=== PATIENT | male | born 1980 ===

== ENCOUNTER 2017-11-03 08:35 | Emergency (ER) | payer MEDICAID, OTHER ==
--- NOTE | 2017-11-03 09:24 | C.PDOC ---
History Of Present Illness 36 year old male patient presents to the ER with c/o frontal headache, ear pain , throat pain and tender lymph nodes for x3 days. Patient also reports of a subjective fever for x1 day. He states he took Tylenol with minimal relief but the symptoms came back again. Patient denies cough, abdominal pain, neck stiffness, blurry vision and photophobia. HPI: Influenza Time Seen by Provider: 11/03/17 08:49 Chief Complaint: Flu-like Symptoms History Per: Patient Exam Limitations: no limitations Onset/Duration Of Symptoms: Days (x3) Past Medical History Reviewed: Historical Data, Nursing Documentation, Vital Signs Vital Signs: Last Vital Signs Temp 98.9 F 11/03/17 08:40 Pulse 96 H 11/03/17 08:40 Resp 20 11/03/17 08:40 BP 142/97 H 11/03/17 08:40 Pulse Ox 97 11/03/17 08:40 Family History: States: Unknown Family Hx - Social History Hx Alcohol Use: Yes Hx Substance Use: No - Immunization History Hx Tetanus Toxoid Vaccination: No Hx Influenza Vaccination: Yes (12/2014) Hx Pneumococcal Vaccination: No Review Of Systems Constitutional: Positive for: Fever (subjective) Eyes: Negative for: Vision Change (blurry vision), Other (photophobia) ENT: Positive for: Ear Pain, Throat Pain, Other (tender lymph nodes) Respiratory: Negative for: Cough Gastrointestinal: Negative for: Abdominal Pain Musculoskeletal: Negative for: Neck Pain (stiffness) Neurological: Positive for: Headache (frontal ) Physical Exam - Physical Exam Appears: Well, Non-toxic, No Acute Distress Skin: Warm, Dry Head: Atraumatic, Normacephalic Eye(s): bilateral: PERRL, EOMI Ear(s): Bilateral: Normal Nose: Normal Oral Mucosa: Moist Throat: Erythema, Exudate, Other (enlarged tonsils ) Neck: No Paracervical Tenderness, Supple, Other (no nuchal rigidity) Lymphatic: Adenopathy (tender bilateral submandibular nodes) Chest: No Tenderness Cardiovascular: Rhythm Regular, No Murmur Respiratory: Normal Breath Sounds, No Rales, No Rhonchi, No Wheezing Gastrointestinal/Abdominal: Soft, No Tenderness Back: No CVA Tenderness, No Vertebral Tenderness, No Decreased ROM, Paraspinal Tenderness (mild b/l lumbar) Extremity: Normal ROM (x4) Neurological/Psych: Oriented x3, Normal Speech, Normal Cognition Medical Decision Making Medical Decision Making: Impression: frontal headache with ear pain, throat pain, tender lymph nodes and subjective fever. Plans: -- ibuprofen -- rapid strep throat test 1050 Reassess: Patient is resting comfortably. headache decreased. will give rx for amox due to exudates. - ECG O2 Sat by Pulse Oximetry: 97 (RA) Pulse Ox Interpretation: Normal Disposition Counseled Patient/Family Regarding: Studies Performed, Diagnosis, Need For Followup, Rx Given - Disposition Referrals: Shaik Carnes MD [Staff Provider] - Disposition: HOME/ ROUTINE Disposition Time: 10:55 Condition: IMPROVED Additional Instructions: Take Tylenol or MOtrin for pain; take antibiotics as prescribed until completed. Gargle with warm salty water several times a day. Follow up with Dr Montalvo in 2-3 days. Prescriptions: Amoxicillin [Amoxil 500 mg Cap] 500 mg PO BID #20 cap Ibuprofen [Motrin] 600 mg PO TID #30 tab Instructions: Sore Throat, Adult (DC) Forms: [employer] (Cameroonian), General Discharge Instructions - Clinical Impression Clinical Impression: Pharyngitis - PA / CARAMEL MAKER / Resident Statement / has reviewed & agrees with the documentation as recorded. - Scribe Statement The provider has reviewed the documentation as recorded by the Wilberto Sandoval Do All medical record entries made by the Scribe were at my direction and personally dictated by me. I have reviewed the chart and agree that the record accurately reflects my personal performance of the history, physical exam, medical decision making, and the department course for this patient. I have also personally directed, reviewed, and agree with the discharge instructions and disposition.
[2017-11-03 09:58] VITALS: BP 134/87; PULSE 73; RESP 18; TEMP 98.2
[2017-11-03 10:54] VITALS: O2SAT 97
== END 2017-11-03 11:09 | disposition home or self-care (01) ==
LOC: C.ER 08:35
DX: J02.9 Acute pharyngitis, unspecified (principal)

== ENCOUNTER 2018-05-31 19:09 | Emergency (ER) | payer SELFPAY ==
[2018-05-31 19:42] VITALS: RESP 18
[2018-05-31] MEDS ORDERED: Sodium Chloride 0.9% 1,000 ML IV ONE (19:47)
--- NOTE | 2018-05-31 20:09 | C.PDOC ---
History Of Present Illness 37 year old male with no significant PMHx presents with watery diarrhea that began 2 days ago. He describes the diarrhea to be nonbloody, with no mucous, and yellow in color. Patient recently traveled back from the [place] 2 days ago where he was for 9 days. He states while in the [place] he was not hospitalized, did not drink unpasteurized milk, or use any antibiotics. Patient had a friend who also went on the trip that has similar symptoms. He reports some chills and abdominal discomfort but otherwise no other complaints, denies medications, surgeries, Hx of smoking, drug use, or ETOH use. Time Seen by Provider: 05/31/18 19:20 Chief Complaint (Nursing): GI Problem History Per: Patient History/Exam Limitations: no limitations Onset/Duration Of Symptoms: Days Current Symptoms Are (Timing): Still Present Quality Of Discomfort: Unable To Describe Associated Symptoms: Chills, Diarrhea. denies: Fever Exacerbating Factors: None Alleviating Factors: Rest Recent travel outside of the [place]: No Past Medical History Reviewed: Historical Data, Nursing Documentation, Vital Signs Vital Signs: Last Vital Signs Temp 98.2 F 05/31/18 19:34 Pulse 81 05/31/18 19:34 Resp 18 05/31/18 19:34 BP 160/101 H 05/31/18 19:34 Pulse Ox 97 05/31/18 19:34 Family History: States: Unknown Family Hx - Social History Hx Alcohol Use: Yes Hx Substance Use: No - Immunization History Hx Tetanus Toxoid Vaccination: No Hx Influenza Vaccination: No (12/2014) Hx Pneumococcal Vaccination: No Review Of Systems Except As Marked, All Systems Reviewed And Found Negative. Gastrointestinal: Positive for: Abdominal Pain, Diarrhea Physical Exam - Physical Exam Appears: Non-toxic Skin: Normal Color, Warm Head: Atraumatic, Normacephalic Eye(s): bilateral: Normal Inspection Oral Mucosa: Moist Neck: Normal, Supple Chest: Symmetrical, No Tenderness Cardiovascular: Rhythm Regular Respiratory: Normal Breath Sounds, No Rales, No Rhonchi, No Wheezing Gastrointestinal/Abdominal: Soft, No Tenderness, No Distention Back: No CVA Tenderness Neurological/Psych: Oriented x3, Normal Speech ED Course And Treatment - Laboratory Results Result Diagrams: 05/31/18 20:09 05/31/18 20:09 O2 Sat by Pulse Oximetry: 97 (Room air) Pulse Ox Interpretation: Normal Progress Note: Blood work and UA ordered. IV fluids and bentyl administered. Disposition Counseled Patient/Family Regarding: Studies Performed, Diagnosis, Need For Followup, Rx Given - Disposition Referrals: Shaik Carnes MD [Staff Provider] - Disposition: HOME/ ROUTINE Disposition Time: 21:00 Condition: STABLE Additional Instructions: FOLLOW UP WITH YOUR DOCTOR/CLINIC IN 1-2 DAYS USE MEDICATION NEEDED FOR ABDOMINAL CRAMPING RETURN TO ER IF SYMPTOMS WORSEN Prescriptions: Dicyclomine [Bentyl] 20 mg PO Q6 PRN #15 tab PRN Reason: ABDOMINAL CRAMPING Instructions: Diarrhea and Traveler's Diarrhea, Adult (DC) Forms: [employer] (Khmer) Print Language: SETSWANA - Clinical Impression Clinical Impression: Diarrhea - Scribe Statement The provider has reviewed the documentation as recorded by the Scribjosr Christian All medical record entries made by the Scribe were at my direction and personally dictated by me. I have reviewed the chart and agree that the record accurately reflects my personal performance of the history, physical exam, medical decision making, and the department course for this patient. I have also personally directed, reviewed, and agree with the discharge instructions and disposition.
[2018-05-31 20:13] LABS: BASO % 0.1 % (0.0-2.0); EOS # 0.1 K/uL (0.0-0.7); EOS % 1.2 % (0.0-4.0); HEMOGLOBIN 12.2 g/dL (12.0-18.0); LYMPH # 2.8 K/uL (1.0-4.3); LYMPH % 45.1 % (20.0-40.0); MEAN CELL VOLUME 85.6 fL (80.0-94.0); MEAN CORPUSCULAR HEMOGLOBIN 27.4 pg (27.0-31.0); MEAN PLATELET VOLUME 7.2 fL (7.2-11.7); MONO # 0.5 K/uL (0.0-0.8); MONO % 7.7 % (0.0-10.0); NEUT # 2.8 K/uL (1.8-7.0); NEUT % 45.9 % (50.0-75.0); RBC 4.45 Mil/uL (4.40-5.90); RED CELL DISTRIBUTION WIDTH 13.3 % (11.5-14.5)
[2018-05-31 20:16] LABS: WHITE BLOOD COUNT 6.1 K/uL (4.8-10.8)
[2018-05-31 20:27] LABS: ALB/GLOB RATIO 1.3 (1.0-2.1); ALBUMIN 4.2 g/dL (3.5-5.0); ALT/SGPT 16 U/L (21-72); AST/SGOT 23 U/L (17-59); BLOOD UREA NITROGEN 16 mg/dL (9-20); CALCIUM 8.7 mg/dl (8.6-10.4); GFR NON-AFRICAN AMERICAN > 60; LIPASE 96 U/L (23-300)
[2018-05-31 21:42] VITALS: BP 151/94; PULSE 74; TEMP 98.4; O2SAT 98
== END 2018-05-31 21:12 | disposition home or self-care (01) ==
LOC: C.ER 19:09
DX: R19.7 Diarrhea, unspecified (principal)
CPT/HCPCS: 80053; 83690; 85025; 96360; 99284; J7030

== ENCOUNTER 2018-07-17 11:21 | Emergency (ER) | payer SELFPAY ==
[2018-07-17 11:29] VITALS: O2SAT 99
--- NOTE | 2018-07-17 13:15 | C.PDOC ---
History Of Present Illness 37 y/o male comes in to ED complaining of headache, fever, sore throat, and vomiting since last night. He denies any abdominal pain or diarrhea. No known trauma. Patient has no other complaints. Time Seen by Provider: 07/17/18 13:01 Chief Complaint (Nursing): Back Pain History Per: Patient History/Exam Limitations: no limitations Onset/Duration Of Symptoms: Days Current Symptoms Are (Timing): Still Present Past Medical History Reviewed: Historical Data, Nursing Documentation, Vital Signs Vital Signs: Last Vital Signs Temp 100.4 F H 07/17/18 11:27 Pulse 112 H 07/17/18 11:27 Resp 18 07/17/18 11:27 BP 132/81 07/17/18 11:27 Pulse Ox 99 07/17/18 11:27 Primary Care Provider: Shaik Carnes Family History: States: No Known Family Hx - Social History Hx Alcohol Use: Yes Hx Substance Use: No - Immunization History Hx Tetanus Toxoid Vaccination: No Hx Influenza Vaccination: No (12/2014) Hx Pneumococcal Vaccination: No Review Of Systems Except As Marked, All Systems Reviewed And Found Negative. Constitutional: Positive for: Fever. Negative for: Chills ENT: Positive for: Throat Pain (sore throat) Cardiovascular: Negative for: Chest Pain Respiratory: Negative for: Shortness of Breath Gastrointestinal: Positive for: Vomiting. Negative for: Nausea, Abdominal Pain, Diarrhea Neurological: Positive for: Headache. Negative for: Dizziness Physical Exam - Physical Exam Appears: Non-toxic, No Acute Distress Skin: Warm, Dry Head: Atraumatic, Normacephalic Eye(s): bilateral: Normal Inspection Oral Mucosa: Moist Throat: Erythema (pharynx erythema), No Exudate Neck: No Midline Cervical Tenderness, No Paracervical Tenderness, No Step Off Deformity, Supple Cardiovascular: Rhythm Regular, No Murmur Respiratory: Normal Breath Sounds, No Rales, No Rhonchi, No Wheezing Gastrointestinal/Abdominal: Soft, No Tenderness Extremity: Bilateral: Normal Color And Temperature, Normal ROM Neurological/Psych: Oriented x3, Normal Speech ED Course And Treatment - Laboratory Results Result Diagrams: 07/17/18 16:14 07/17/18 16:14 O2 Sat by Pulse Oximetry: 99 (RA) Pulse Ox Interpretation: Normal - CT Scan/US Abd/Pel CT Other Rad Studies (CT/US): Read By Radiologist, Radiology Report Reviewed CT/US Interpretation: FINDINGS: LOWER THORAX: Heart size is within range of normal. No significant pericardial effusion. There is a small hiatal hernia with slight wall thickening of distal esophagus likely due to protrusion of gastric mucosa however the possibility of esophagitis not excluded. LIVER: The liver exhibits normal size and attenuation pattern without mass collection or calcification. GALLBLADDER AND BILE DUCTS: Gallbladder is physiologically distended. No evidence of intraluminal gallbladder calculi. PANCREAS: Unremarkable. No gross lesion or ductal dilatation. SPLEEN: Unenhanced spleen unremarkable without masses collections or calcifications. ADRENALS: There are no adrenal lesions. KIDNEYS AND URETERS: Kidneys demonstrate symmetric size. No evidence of nephrolithiasis or hydronephrosis. No renal masses or co llections seen. VASCULATURE: Unremarkable. No aortic aneurysm. No aortic atherosclerotic calcification or mural plaque present. BOWEL: Evaluation of the bowel is limited due to the lack of oral contrast material. Stomach is incompletely distended with thick-walled appearance. Rule out gastritis. Visualized loops of small bowel exhibit normal contour and caliber. No evidence of acute mechanical small bowel obstruction. APPENDIX: No evidence of acute appendicitis. PERITONEUM: Unremarkable. No free fluid. No free air. LYMPH NODES: Unremarkable. No enlarged lymph nodes. BLADDER: Urinary bladder incompletely distended with thick-walled appearance. Muscular hypertrophy may contribute. Correlation with urinalysis to exclude cystitis or other intrinsic/invasive wall lesion. REPRODUCTIVE: Unremarkable as visualized. BONES: Minimal degenerative spondylosis. OTHER FINDINGS: None. IMPRESSION: No evidence of nephrolithiasis or hydronephrosis. No evidence to suggest acute appendicitis. Urinary bladder is incompletely distended with slight thick- walled appearance. Muscular hypertrophy presumably contributes however correlation with urinalysis to exclude cystitis or other intrinsic wall lesion.. The stomach is incompletely distended with thick-walled appearance as well. Rule out gastritis or other intrinsic wall abnormality. Medical Decision Making Medical Decision Making: ro colitis, strep, flu, uti/pyelo/rnal stone. Plan: --Tylenol --Flu Swab --Rapid Strep --UA --Abd/Pel CT --Labs in er, mild leukocytosi. strep flu neg. no h/o of ivda, surgery trauma. neuro intact. epidura abscess less likely. steady gait. ct neg. suspect viral. advise outp tuf and strict return precautions Disposition - Disposition Referrals: [facility] [Outside] [facility] [Outside] Disposition: HOME/ ROUTINE Disposition Time: 16:00 Condition: GOOD Additional Instructions: please follow up with luzmaria doctor/clinic. return to any er with worsening. Instructions: Low Back Pain in Adults, Viral Syndrome (DC) Forms: [employer] (Moroccan) - Clinical Impression Clinical Impression: Viral syndrome, Low back strain - Scribe Statement The provider has reviewed the documentation as recorded by the Wilberto Eric Provider Attestation: All medical record entries made by the Wilberto were at my direction and personally dictated by me. I have reviewed the chart and agree that the record accurately reflects my personal performance of the history, physical exam, medical decision making, and the department course for this patient. I have also personally directed, reviewed, and agree with the discharge instructions and disposition.
[2018-07-17 13:47] LABS: INFLUENZA A B NEGATIVE FOR FLU A/B (NEGATIVE)
[2018-07-17 13:55] LABS: SQUAMOUS EPITHIAL < 1 /hpf (0-5); URINE BACTERIA OCC (<OCC); URINE BILIRUBIN NEGATIVE (NEGATIVE); URINE BLOOD NEGATIVE (NEGATIVE); URINE CLARITY Hazy (Clear); URINE COLOR Yellow (YELLOW); URINE GLUCOSE (UA) NORMAL (Normal); URINE LEUKOCYTE ESTERASE NEG Leu/uL (Negative); URINE PROTEIN 2+ mg/dL (NEGATIVE); URINE UROBILINOGEN NORMAL mg/dL (0.2-1.0)
[2018-07-17] MEDS ORDERED: Sodium Chloride 0.9% 1,000 ML IV ONE (15:06)
[2018-07-17 16:25] LABS: BASO % 0.2 % (0.0-2.0); HEMOGLOBIN 13.4 g/dL (12.0-18.0); LYMPH # 0.9 K/uL (1.0-4.3); LYMPH % 7.3 % (20.0-40.0); MEAN CELL VOLUME 85.5 fL (80.0-94.0); MEAN CORPUSCULAR HEMOGLOBIN 28.3 pg (27.0-31.0); MEAN CORPUSCULAR HGB CONC 33.1 g/dL (33.0-37.0); MEAN PLATELET VOLUME 7.6 fL (7.2-11.7); MONO % 7.4 % (0.0-10.0); NEUT # 10.9 K/uL (1.8-7.0); NEUT % 85.1 % (50.0-75.0); RBC 4.73 Mil/uL (4.40-5.90); RED CELL DISTRIBUTION WIDTH 14.1 % (11.5-14.5); WHITE BLOOD COUNT 12.8 K/uL (4.8-10.8)
[2018-07-17 16:26] LABS: PLATELET COUNT 219 K/uL (130-400)
--- NOTE | 2018-07-17 16:26 | CT ---
Date of service: 07/17/2018 PROCEDURE: CT Abdomen and Pelvis without intravenous contrast HISTORY: Right flank pain COMPARISON: Comparison made with prior CT scan of the abdomen pelvis 08/30/2015. TECHNIQUE: Contiguous helical/transaxial sections of the abdomen pelvis performed without oral or intravenous contrast material. Additional 2D sagittal and coronal reformats generated. Radiation dose: Total exam DLP = 627.01 mGy-cm. This CT exam was performed using one or more of the following dose reduction techniques: Automated exposure control, adjustment of the mA and/or kV according to patient size, and/or use of iterative reconstruction technique. FINDINGS: LOWER THORAX: Heart size is within range of normal. No significant pericardial effusion. There is a small hiatal hernia with slight wall thickening of distal esophagus likely due to protrusion of gastric mucosa however the possibility of esophagitis not excluded. LIVER: The liver exhibits normal size and attenuation pattern without mass collection or calcification. GALLBLADDER AND BILE DUCTS: Gallbladder is physiologically distended. No evidence of intraluminal gallbladder calculi. PANCREAS: Unremarkable. No gross lesion or ductal dilatation. SPLEEN: Unenhanced spleen unremarkable without masses collections or calcifications ADRENALS: There are no adrenal lesions. KIDNEYS AND URETERS: Kidneys demonstrate symmetric size. No evidence of nephrolithiasis or hydronephrosis. No renal masses or collections seen. VASCULATURE: Unremarkable. No aortic aneurysm. No aortic atherosclerotic calcification or mural plaque present. BOWEL: Evaluation of the bowel is limited due to the lack of oral contrast material. Stomach is incompletely distended with thick-walled appearance. Rule out gastritis. Visualized loops of small bowel exhibit normal contour and caliber. No evidence of acute mechanical small bowel obstruction. APPENDIX: No evidence of acute appendicitis. PERITONEUM: Unremarkable. No free fluid. No free air. LYMPH NODES: Unremarkable. No enlarged lymph nodes. BLADDER: Urinary bladder incompletely distended with thick-walled appearance. Muscular hypertrophy may contribute. Correlation with urinalysis to exclude cystitis or other intrinsic/invasive wall lesion. REPRODUCTIVE: Unremarkable as visualized. BONES: Minimal degenerative spondylosis OTHER FINDINGS: None. IMPRESSION: No evidence of nephrolithiasis or hydronephrosis. No evidence to suggest acute appendicitis. Urinary bladder is incompletely distended with slight thick-walled appearance. Muscular hypertrophy presumably contributes however correlation with urinalysis to exclude cystitis or other intrinsic wall lesion.. The stomach is incompletely distended with thick-walled appearance as well. Rule out gastritis or other intrinsic wall abnormality.
[2018-07-17 16:29] LABS: INR 1.3; PROTHROMBIN TIME 13.9 SECONDS (9.7-12.2)
[2018-07-17 16:39] LABS: ALB/GLOB RATIO 1.2 (1.0-2.1); ALBUMIN 4.5 g/dL (3.5-5.0); ALT/SGPT 29 U/L (21-72); AST/SGOT 23 U/L (17-59); BLOOD UREA NITROGEN 12 mg/dL (9-20); CALCIUM 9.1 mg/dl (8.6-10.4); GFR NON-AFRICAN AMERICAN > 60; LIPASE 21 U/L (23-300)
[2018-07-17 16:50] VITALS: BP 129/86; PULSE 110; RESP 20; TEMP 99.4
[2018-07-17] MEDS ORDERED: Sodium Chloride 0.9% 1,000 ML ONE (17:09)
[2018-07-17 18:06] LABS: PLATELET ESTIMATE NORMAL (NORMAL)
[2018-07-17 18:08] LABS: BANDS 3 % (0-2); LYMPHOCYTE 8 % (20-40); MONOCYTE 8 % (0-10); NEUTROPHIL 81 % (50-75); TOTAL CELLS COUNTED 100
[2018-07-17 18:09] LABS: ANISOCYTOSIS SLIGHT; HYPERSEGMENTATION PRESENT; LARGE PLATELETS PRESENT; MICROCYTOSIS SLIGHT; POIKILOCYTOSIS SLIGHT; SMUDGE CELLS PRESENT; SPHEROCYTES SLIGHT; TEARDROP CELLS SLIGHT
== END 2018-07-17 17:25 | disposition home or self-care (01) ==
LOC: C.ER 11:21
DX: B34.9 Viral infection, unspecified (principal); S39.012A Strain of muscle, fascia and tendon of lower back, initial encounter; X58.XXXA Exposure to other specified factors, initial encounter
CPT/HCPCS: 74176; 80053; 81001; 83690; 85025; 85610; 85730; 87070; 87430; 87804; 96360; 99284; J7030